=== PATIENT | male | born 1985 | race Caucasian/White ===

== ENCOUNTER 2020-05-28 10:46 | Emergency (ER) | payer MEDICAID ==
[~2020-05-28] VITALS: Ht 162.6 cm; Wt 70.0 kg
[2020-05-28] MEDS ORDERED: KETOROLAC 30MG/ML VIAL IM ONE (11:30)
[2020-05-28] MEDS ORDERED: ACET-2708 MT (12:01)
[2020-05-28 12:14] VITALS: BP 133/92
== END 2020-05-28 12:21 | disposition home or self-care (01) ==
LOC: ER 12:03
DX: S01.01XA Laceration without foreign body of scalp, initial encounter (principal); R51.9 Headache, unspecified; W20.8XXA Other cause of strike by thrown, projected or falling object, initial encounter; Y93.89 Activity, other specified; Y92.015 Private garage of single-family (private) house as the place of occurrence of the external cause
CPT/HCPCS: 96372; 99283; J1885

== ENCOUNTER 2020-07-05 12:06 | Emergency (ER) | payer MEDICAID ==
[~2020-07-05] VITALS: Ht 165.1 cm; Wt 74.0 kg
[~2020-07-05 12:06] MED LIST: ACET-2708 MT
[2020-07-05 14:03] VITALS: BP 128/70
== END 2020-07-05 14:16 | disposition left against medical advice (07) ==
LOC: ER 12:06
DX: R51.9 Headache, unspecified (principal); R42 Dizziness and giddiness; E11.9 Type 2 diabetes mellitus without complications; Z87.828 Personal history of other (healed) physical injury and trauma; Z79.899 Other long term (current) drug therapy
CPT/HCPCS: 99281; 99282

== ENCOUNTER 2021-04-02 06:03 | Emergency (ER) | payer MEDICAID ==
[~2021-04-02] VITALS: Ht 170.2 cm; Wt 72.5 kg
[2021-04-02] MEDS ORDERED: SODIUM CHLORIDE 0.9% 1,000 ML IV ONE ×2 (06:15)
[2021-04-02 06:51] LABS: BASOPHILS % 0.3 % (0.0-2.0); EOSINOPHILS % 0.1 % (0.0-5.0); HEMATOCRIT. 48.1 % (42.0-52.0); HEMOGLOBIN. 16.2 g/dL (14.0-18.0); LYMPHOCYTES % 29.2 % (20.0-50.0); MEAN CORPUSCULAR HEMOGLOBIN 28.9 pg (28.0-32.0); MEAN CORPUSCULAR VOLUME 85.8 fL (80.0-94.0); MEAN PLATELET VOLUME 10.4 fl (7.4-10.4); MONOCYTES % 9.2 % (2.0-8.0); NEUTROPHILS % 61.2 % (40.0-76.0); PLATELET 193 x1000/uL (130-400); RED CELL DISTRIBUTION WIDTH 12.6 % (11.6-14.6)
[2021-04-02 06:58] LABS: CHLORIDE 92 mEq/L (98-107)
[2021-04-02 07:02] LABS: ETHANOL BLOOD < 10 mg/dL
[2021-04-02 07:06] LABS: CREATINE KINASE 46 IU/L (39-308)
[2021-04-02 07:54] LABS: CLARITY URINE CLEAR (CLEAR); COLOR URINE YELLOW (YELLOW); KETONES URINE 3+ (NEGATIVE); LEUKOCYTE ESTERASE URINE NEGATIVE (NEGATIVE); NITRITE URINE NEGATIVE (NEGATIVE); OCCULT BLOOD URINE NEGATIVE (NEGATIVE); PROTEIN URINE 1+ (NEGATIVE); SPECIFIC GRAVITY URINE 1.038 (1.005-1.030)
[2021-04-02 08:12] LABS: *AMPHETAMINES SCREEN URINE NEGATIVE (NEGATIVE); *BARBITURATES SCREEN URINE NEGATIVE (NEGATIVE); *BENZODIAZEPINES SCREEN URINE NEGATIVE (NEGATIVE); *COCAINE SCREEN URINE NEGATIVE (NEGATIVE); METHADONE URINE SCREEN NEGATIVE (NEGATIVE); OPIATES URINE SCREEN NEGATIVE (NEGATIVE); PHENCYCLIDINE URINE SCREEN NEGATIVE (NEGATIVE)
[2021-04-02 08:13] LABS: CANNABINOID URINE SCREEN NEGATIVE (NEGATIVE)
[2021-04-02] MEDS ORDERED: ACET-2708 MT (08:40)
[2021-04-02] MEDS ORDERED: DOXY100C5 MT (08:40)
[2021-04-02] MEDS ORDERED: ALBU6.7H9 INH (08:40)
[2021-04-02] MEDS ORDERED: DOXYCYCLINE HYCLATE 100MG CAPSULE PO ONE (08:45)
[2021-04-02] MEDS ORDERED: ALBUTEROL 6.7GM HFA INHALER ORI ONE (08:45)
[2021-04-02] MEDS ORDERED: ALBUTEROL (0.083%) 2.5MG/3ML NEB HHN ONE (09:00)
[2021-04-02 10:09] VITALS: BP 109/78
== END 2021-04-02 10:12 | disposition home or self-care (01) ==
LOC: ER 06:03
DX: U07.1 COVID-19 (principal); J18.9 Pneumonia, unspecified organism; E11.9 Type 2 diabetes mellitus without complications; Z91.14 Patient's other noncompliance with medication regimen
CPT/HCPCS: 36415; 71045; 80053; 80305; 80320; 81003; 82550; 83605; 83690; 83880; 84145; 84484; 85025; 86140; 87040; 87086; 87426; 87804; 93005; 94640; 96360; 96361; 99285; J7030; Z7610; G0480

== ENCOUNTER 2023-05-15 16:12 | Emergency (ER) | payer MEDICAID, OTHER ==
[~2023-05-15] VITALS: Ht 167.6 cm; Wt 68.0 kg
[~2023-05-15 16:12] MED LIST changes: +ALBU6.7H3 INH; +DOXY100C5 MT
[2023-05-15 16:22] VITALS: O2SAT 100
[2023-05-15 16:58] LABS: BASOPHILS % 1.2 % (0.0-2.0); EOSINOPHILS % 1.7 % (0.0-5.0); HEMATOCRIT. 38.7 % (42.0-52.0); HEMOGLOBIN. 13.4 g/dL (14.0-18.0); LYMPHOCYTES % 20.2 % (20.0-50.0); MEAN CORPUSCULAR HEMOGLOBIN 29.8 pg (28.0-32.0); MEAN CORPUSCULAR HGB CONC 34.6 g/dL (31.0-37.0); MEAN CORPUSCULAR VOLUME 86.1 fL (80.0-94.0); MEAN PLATELET VOLUME 9.1 fl (7.4-10.4); MONOCYTES % 5.7 % (2.0-8.0); NEUTROPHILS % 71.2 % (40.0-76.0); PLATELET 468 x1000/uL (130-400); RED CELL DISTRIBUTION WIDTH 12.6 % (11.6-14.6); WHITE BLOOD COUNT 9.6 x1000/uL (4.5-11.0)
[2023-05-15 17:13] LABS: ALANINE AMINOTRANSFERASE 7 IU/L (10-49); ALBUMIN 4.4 g/dL (3.2-4.8); ASPARTATE AMINOTRANSFERASE 14 IU/L (<34); BILIRUBIN TOTAL 0.4 mg/dL (0.1-1.0); CALCIUM 9.1 mg/dL (8.7-10.4); CARBON DIOXIDE 28 mEq/L (21-32); CHLORIDE 99 mEq/L (98-107); CREATININE 0.9 mg/dL (0.6-1.3); GLUCOSE 342 mg/dL (70-105); POTASSIUM 4.5 mEq/L (3.5-5.1); PROTEIN TOTAL 7.3 g/dL (6.0-8.3); SODIUM 133 mEq/L (136-145); UREA NITROGEN BLOOD 13 mg/dL (9-23)
[2023-05-15] MEDS: SODIUM CHLORIDE 0.9% 1000ML BAG (SEPSIS BOLUS) IV ONE (17:45)
[2023-05-15 19:11] LABS: PROTHROMBIN TIME 10.9 sec (9.6-11.0)
[2023-05-15] MEDS: VANCOMYCIN 1G PREMIX 200 ML IV ONE (20:08)
[2023-05-15] MEDS: AMPICILLIN SOD/SULBACTAM NA 3 G in SODIUM CHLORIDE 0.9% 100 ML IV SCH (21:14)
[2023-05-15 22:08] VITALS: BP 144/83; PULSE 86; RESP 12; TEMP 99.1
[2023-06-11] MEDS ORDERED: CEFP200T14 MT (13:29)
[2023-06-11] MEDS ORDERED: IBUP-2029 MT (13:29)
[2023-06-11] MEDS ORDERED: TAMS-11 MT (13:29)
== END 2023-05-15 22:15 | disposition short-term general hospital (02) ==
LOC: ER 16:12 → EDBEDREQ 19:02 → ER 22:15 → UNDOADMIN 05-16 00:51 → 8WST 05-16 00:51
DX: M86.9 Osteomyelitis, unspecified (principal); L03.032 Cellulitis of left toe; E11.9 Type 2 diabetes mellitus without complications; Z98.890 Other specified postprocedural states
CPT/HCPCS: 99291; 96365; 96367; 96361; 80053; 83605; 85025; 85610; 87040; 36415; 84145; 73630; J0295; J3370; J7050; J7030

== ENCOUNTER 2023-06-16 01:17 | Emergency (ER) | payer OTHER ==
[~2023-06-16] VITALS: Ht 172.7 cm; Wt 78.0 kg
[~2023-06-16 01:17] MED LIST changes: +CEFP200T14 MT; +IBUP-2029 MT; +TAMS-11 MT
[2023-06-16 01:19] VITALS: O2SAT 100
[2023-06-16] MEDS: SODIUM CHLORIDE 0.9% 1,000 ML IV ONE (02:52)
[2023-06-16] MEDS: PIPERACILLIN/TAZO 3.375G/50ML 50 ML IV ONE (02:52)
[2023-06-16 03:03] LABS: HEMATOCRIT. 36.9 % (42.0-52.0); HEMOGLOBIN. 12.5 g/dL (14.0-18.0); MEAN CORPUSCULAR HEMOGLOBIN 28.6 pg (28.0-32.0); MEAN CORPUSCULAR HGB CONC 33.8 g/dL (31.0-37.0); MEAN CORPUSCULAR VOLUME 84.4 fL (80.0-94.0); MEAN PLATELET VOLUME 9.4 fl (7.4-10.4); PLATELET 317 x1000/uL (130-400); RED BLOOD CELL COUNT 4.37 mill/uL (4.7-6.1); RED CELL DISTRIBUTION WIDTH 13.5 % (11.6-14.6); WHITE BLOOD COUNT 8.1 x1000/uL (4.5-11.0)
[2023-06-16 03:19] LABS: DIFFERENTIAL COMMENT 1
[2023-06-16 03:21] LABS: CARBON DIOXIDE 26 mEq/L (21-32); CHLORIDE 105 mEq/L (98-107); POTASSIUM 4.1 mEq/L (3.5-5.1); SODIUM 137 mEq/L (136-145)
[2023-06-16 03:22] LABS: CALCIUM 9.2 mg/dL (8.7-10.4)
[2023-06-16 03:26] LABS: GLUCOSE 156 mg/dL (70-105)
[2023-06-16 03:27] LABS: UREA NITROGEN BLOOD 11 mg/dL (9-23)
[2023-06-16 03:28] LABS: ALANINE AMINOTRANSFERASE 104 IU/L (10-49); ALBUMIN 4.2 g/dL (3.2-4.8); ASPARTATE AMINOTRANSFERASE 70 IU/L (<34)
[2023-06-16 03:29] LABS: BETA HYDROXYBUTYRATE 0.1 mMol/L (0.0-0.3); BILIRUBIN TOTAL 0.4 mg/dL (0.1-1.0); PROTEIN TOTAL 6.5 g/dL (6.0-8.3)
[2023-06-16 03:42] LABS: TROPONIN I HIGH SENSITIVITY < 4 ng/L (3.0-53)
[2023-06-16] MEDS: VANCOMYCIN 1G PREMIX 200 ML IV ONE (04:10)
[2023-06-16 04:38] LABS: ERYTHROCYTE SEDIMENTATION RATE 28 mm/hr (0-15)
[2023-06-16] MEDS ORDERED: DIPH25CA83 MT (04:51)
[2023-06-16 05:43] VITALS: BP 115/82; PULSE 113; RESP 14; TEMP 98.4
[2023-06-16 05:59] LABS: CLARITY URINE CLEAR (CLEAR); COLOR URINE YELLOW (YELLOW); GLUCOSE URINE 2+ (NEGATIVE); KETONES URINE NEGATIVE (NEGATIVE); LEUKOCYTE ESTERASE URINE NEGATIVE (NEGATIVE); NITRITE URINE NEGATIVE (NEGATIVE); OCCULT BLOOD URINE NEGATIVE (NEGATIVE); PH URINE 5.5 (4.5-8.0); PROTEIN URINE NEGATIVE (NEGATIVE); SPECIFIC GRAVITY URINE 1.009 (1.005-1.030); UROBILINOGEN URINE 0.2 E.U./dL (0.2-1.0)
[2023-06-16 07:19] LABS: BACTERIA URINE NONE SEEN; RBC URINE NONE SEEN /hpf (0-2); SQUAMOUS EPITHELIAL CELL URINE RARE /lpf (RARE/1+); WBC URINE 0-2 /hpf (0-2)
[2023-06-16 08:44] LABS: PLATELET ESTIMATE NORMAL
== END 2023-06-16 05:40 | disposition home or self-care (01) ==
LOC: ER 01:17
DX: I77.6 Arteritis, unspecified (principal); M86.9 Osteomyelitis, unspecified; Z88.1 Allergy status to other antibiotic agents; E11.9 Type 2 diabetes mellitus without complications; Z98.890 Other specified postprocedural states
CPT/HCPCS: 36415; 71045; 80053; 81003; 82010; 83605; 84145; 84484; 85025; 85651; 93005; 96365; 96366; 96368; 99285; J2543; J3370; J7030

== ENCOUNTER 2023-09-22 10:12 | Emergency (ER) | payer OTHER ==
[~2023-09-22] VITALS: Ht 167.6 cm; Wt 60.0 kg
[~2023-09-22 10:12] MED LIST changes: +DIPH25CA83 MT
[2023-09-22 10:28] VITALS: TEMP 98.4; O2SAT 99
[2023-09-22] MEDS ORDERED: LIDO700A15 TP (11:35)
[2023-09-22] MEDS ORDERED: NAPR-1176 MT (11:35)
[2023-09-22 11:41] VITALS: BP 115/80; PULSE 95; RESP 16
[2023-09-22] MEDS: KETOROLAC 15MG/ML VIAL IM ONE (11:41)
== END 2023-09-22 11:44 | disposition home or self-care (01) ==
LOC: ER 10:12
DX: M54.6 Pain in thoracic spine (principal); R07.89 Other chest pain; E11.9 Type 2 diabetes mellitus without complications; Z79.899 Other long term (current) drug therapy; V49.49XA Driver injured in collision with other motor vehicles in traffic accident, initial encounter; Y93.89 Activity, other specified; Y92.89 Other specified places as the place of occurrence of the external cause; Y99.8 Other external cause status
CPT/HCPCS: 99283; 71045; 96372; J1885

== ENCOUNTER 2024-09-05 04:05 | Emergency (ER) | payer OTHER ==
[~2024-09-05] VITALS: Ht 167.6 cm; Wt 75.0 kg
[~2024-09-05 04:05] MED LIST changes: +LIDO-53 TP; +NAPR-1176 MT; -TAMS-11 MT; +TAMS-54 MT
[2024-09-05 04:16] VITALS: O2SAT 100
[2024-09-05 05:30] VITALS: BP 146/104; PULSE 90; RESP 15; TEMP 36.9; O2SAT 100
== END 2024-09-05 05:35 | disposition home or self-care (01) ==
LOC: ER 04:05
DX: H10.219 Acute toxic conjunctivitis, unspecified eye (principal); E11.9 Type 2 diabetes mellitus without complications; Z98.890 Other specified postprocedural states; Z79.899 Other long term (current) drug therapy; Z79.1 Long term (current) use of non-steroidal anti-inflammatories (NSAID)
CPT/HCPCS: 99282

== ENCOUNTER 2024-09-20 08:49 | Emergency (ER) | payer OTHER ==
[~2024-09-20] VITALS: Ht 167.6 cm; Wt 72.0 kg
[~2024-09-20 08:49] MED LIST changes: +CYCL25PO15 MT; +IBUP-1455 MT; -IBUP-2029 MT
[2024-09-20 08:55] VITALS: TEMP 36.7; O2SAT 99
[2024-09-20] MEDS: KETOROLAC 30MG/ML VIAL IM ONE (09:27)
[2024-09-20] MEDS ORDERED: METH-653 MT (09:52)
[2024-09-20 10:04] VITALS: BP 123/92; PULSE 96; RESP 18; O2SAT 100
== END 2024-09-20 10:39 | disposition home or self-care (01) ==
LOC: ER 08:58
DX: M25.512 Pain in left shoulder (principal); M54.2 Cervicalgia; M54.9 Dorsalgia, unspecified; E11.9 Type 2 diabetes mellitus without complications; Z79.1 Long term (current) use of non-steroidal anti-inflammatories (NSAID); Z98.890 Other specified postprocedural states; Z79.899 Other long term (current) drug therapy
CPT/HCPCS: 99283; 73030; 96372; J1885